=== PATIENT | female | born 1970 | race Caucasian/White ===

== ENCOUNTER 2017-09-13 15:46 | Emergency (ER) | payer OTHER, SELFPAY ==
[~2017-09-13] VITALS: Ht 167.6 cm; Wt 95.2 kg
[~2017-09-13 15:46] MED LIST: ACET500 PO; ALBIPROI INH; ALBU8HFA2 INH; ALBU90I INH; ALBU90OI; ALBU90OI INH; ALBU90OI61 INH; ALPR1; AMOX500 PO; BUPR150T2; BUSP5 PO; Bactrim Ds Tab1 EACH PO; CALCAVITD PO; CEPH500 PO; CIPRSO OU; CITA20 PO; CODGUAEL PO; CYCL10 PO; ERGO400 PO; FLUO20; FLUO20 PO; FLUT220OIA IH; FLUT44OIA IH; HYDACE5 PO; IBUP800 PO; Keflex500 MG PO; MEDR150I; METCAR500 PO; MONT10T PO; MULVITMIND PO; NAPR500 PO; Norco 5-325 Ta1 EACH PO; OXYACE5T PO; PENVK500 PO; PRED10 PO; PRED20 PO; PRIMATINE MIST; PROM25 PO; Permethrin60 GM TP; RXHYDACE PO; RXOXYACE PO; RXPENVK250 PO; SULTRIDS PO; TOBR.3OPSO OP; TRAZ50 PO; Ultram50 MG PO; VENL75ER; VITB100 PO; ZOLP5
[2017-09-13] MEDS ORDERED: DULO30 PO (16:31)
[2017-09-13] MEDS ORDERED: CEPH500 PO (17:31)
[2018-05-31] MEDS ORDERED: Amphetamine Sal20 MG PO (16:20)
== END 2017-09-13 17:40 | disposition home or self-care (01) ==
LOC: ER 15:46
DX: L03.012 Cellulitis of left finger (principal); J45.909 Unspecified asthma, uncomplicated; F17.210 Nicotine dependence, cigarettes, uncomplicated; Z86.73 Personal history of transient ischemic attack (TIA), and cerebral infarction without residual deficits; Z79.899 Other long term (current) drug therapy
CPT/HCPCS: 10160; 99283

== ENCOUNTER 2017-09-16 16:37 | Emergency (ER) | payer SELFPAY ==
[~2017-09-16] VITALS: Ht 167.6 cm; Wt 95.2 kg
[~2017-09-16 16:37] MED LIST changes: +DULO30 PO
[2017-09-16] MEDS ORDERED: Vistaril50 MG PO (20:31)
== END 2017-09-16 21:20 | disposition home or self-care (01) ==
LOC: ER 16:37
DX: F41.9 Anxiety disorder, unspecified (principal); F32.9 Major depressive disorder, single episode, unspecified; J45.909 Unspecified asthma, uncomplicated; Z79.899 Other long term (current) drug therapy; Z86.14 Personal history of Methicillin resistant Staphylococcus aureus infection
CPT/HCPCS: 99284; Q3014

== ENCOUNTER 2017-11-15 14:14 | Emergency (ER) | END 2017-11-15 17:09 | disposition home or self-care (01) ==

== ENCOUNTER 2018-01-26 23:50 | Emergency (ER) | payer OTHER ==
[~2018-01-26] VITALS: Ht 170.2 cm; Wt 102.1 kg
[~2018-01-26 23:50] MED LIST changes: +Vistaril50 MG PO
[2018-01-26] MEDS ORDERED: AMIT50 PO (23:57)
[2018-01-26] MEDS ORDERED: CLON1 PO (23:57)
[2018-01-26] MEDS ORDERED: CYCL10 PO (23:57)
[2018-01-26] MEDS ORDERED: AMPDEX10 PO (23:57)
[2018-01-26] MEDS ORDERED: ALBU90OI61 INH (23:58)
[2018-01-26] MEDS ORDERED: ACYC400 PO (23:58)
[2018-01-26] MEDS ORDERED: HYDPAM25 PO (23:58)
== END 2018-01-27 01:56 | disposition home or self-care (01) ==
LOC: ER 23:50
DX: S61.411A Laceration without foreign body of right hand, initial encounter (principal); W25.XXXA Contact with sharp glass, initial encounter; Z79.899 Other long term (current) drug therapy; J45.909 Unspecified asthma, uncomplicated; F32.9 Major depressive disorder, single episode, unspecified; F41.9 Anxiety disorder, unspecified; F17.210 Nicotine dependence, cigarettes, uncomplicated
CPT/HCPCS: 12002; 90471; 90714; 99283

== ENCOUNTER 2018-02-13 06:43 | Emergency (ER) | payer OTHER ==
[~2018-02-13] VITALS: Ht 167.6 cm; Wt 88.0 kg
[~2018-02-13 06:43] MED LIST changes: +ACYC400 PO; +AMIT50 PO; +AMPDEX10 PO; +CLON1 PO; +HYDPAM25 PO
== END 2018-02-13 07:24 | disposition home or self-care (01) ==
LOC: ER 06:43
DX: S96.912A Strain of unspecified muscle and tendon at ankle and foot level, left foot, initial encounter (principal); J45.909 Unspecified asthma, uncomplicated; F32.9 Major depressive disorder, single episode, unspecified; F41.9 Anxiety disorder, unspecified; F17.210 Nicotine dependence, cigarettes, uncomplicated; Z79.899 Other long term (current) drug therapy; Z79.51 Long term (current) use of inhaled steroids; W19.XXXA Unspecified fall, initial encounter
CPT/HCPCS: 73610; 99283-25

== ENCOUNTER → 2018-11-23 | Outpatient (CLI) | payer OTHER ==
[~2018-11-23] MED LIST changes: +Amphetamine Sal20 MG PO; +Sudogest60 MG PO
== END | disposition home or self-care (01) ==
LOC: LAB SHORT 16:50 → LAB 16:50
DX: L02.01 Cutaneous abscess of face (principal)
CPT/HCPCS: 87070; 87075; 87077; 87147; 87186; 87205

== ENCOUNTER → 2018-12-01 | Outpatient (CLI) | payer OTHER ==
[~2018-12-01] MED LIST changes: +AMIT25 PO; +Amitriptyline100 MG; +DOK100 MG PO; +GABA100 PO; +HYDCHL50 PO; +HYDHCL25 PO; +Permethrin60 GM TOP; +Prednisone20 MG PO; +RISP3 PO; +Risperidone1 MG PO; +TRIDERM28.4 GM TOP
== END ==
LOC: LAB SHORT 14:10 → LAB 14:10
DX: F15.11 Other stimulant abuse, in remission (principal)
CPT/HCPCS: G0480

== ENCOUNTER 2019-01-06 15:40 | Emergency (ER) | payer OTHER ==
[~2019-01-06] VITALS: Ht 167.6 cm; Wt 89.8 kg
[~2019-01-06 15:40] MED LIST changes: -AMIT25 PO; -Amitriptyline100 MG; -DOK100 MG PO; -GABA100 PO; -HYDCHL50 PO; -HYDHCL25 PO; -Permethrin60 GM TOP; -Prednisone20 MG PO; -RISP3 PO; -Risperidone1 MG PO; -TRIDERM28.4 GM TOP
[2019-01-06] MEDS ORDERED: Amitriptyline100 MG (16:23)
[2019-01-06] MEDS ORDERED: CLON1 PO (16:23)
[2019-01-06] MEDS ORDERED: GABA100 PO (16:23)
[2019-01-06] MEDS ORDERED: DOK100 MG PO (16:24)
[2019-01-06] MEDS ORDERED: HYDCHL50 PO (16:24)
[2019-01-06 16:57] LABS: U Amphetamine Screen Not Detected; U Barbituate Screen Not Detected; U Benzodiazapine Screen Not Detected; U Buprenorphine Screen Not Detected; U Cannabinoids Screen Not Detected; U Cocaine Screen Not Detected; U Methadone Screen Not Detected; U Methamphetamine Screen Not Detected; U Opiates Screen Not Detected; U Oxycodone Screen Not Detected; U Phencyclidine Screen Not Detected; U Propoxyphene Screen Not Detected
== END 2019-01-06 18:32 | disposition home or self-care (01) ==
LOC: ER 15:40
PROVIDERS: Physician Assistant
DX: R45.1 Restlessness and agitation (principal); F22 Delusional disorders; G47.00 Insomnia, unspecified; F43.9 Reaction to severe stress, unspecified; F41.9 Anxiety disorder, unspecified; Z79.899 Other long term (current) drug therapy; J45.909 Unspecified asthma, uncomplicated; F32.9 Major depressive disorder, single episode, unspecified; F43.10 Post-traumatic stress disorder, unspecified; Z87.891 Personal history of nicotine dependence
CPT/HCPCS: 82947; 99284

== ENCOUNTER → 2019-01-25 | Outpatient (CLI) | payer OTHER ==
[~2019-01-25] MED LIST changes: +AMIT25 PO; +Amitriptyline100 MG; +DOK100 MG PO; +GABA100 PO; +HYDCHL50 PO; +HYDHCL25 PO; +Permethrin60 GM TOP; +Prednisone20 MG PO; +RISP3 PO; +Risperidone1 MG PO; +TRIDERM28.4 GM TOP
[2019-01-25 11:29] LABS: U Amphetamine Screen Not Detected; U Barbituate Screen Not Detected; U Benzodiazapine Screen Not Detected; U Buprenorphine Screen Not Detected; U Cannabinoids Screen Not Detected; U Cocaine Screen Not Detected; U Methadone Screen Not Detected; U Methamphetamine Screen Not Detected; U Opiates Screen Not Detected; U Oxycodone Screen Not Detected; U Phencyclidine Screen Not Detected; U Propoxyphene Screen Not Detected
[2019-01-30 03:07] LABS: AMITRIPTYLINE Positive (.); AMITRIPTYLINE CONF 184 ng/mL ({null, Cutoff=100}); CLOMIPRAMINE Negative ({null, Cutoff=100}); CYCLOBENZAPRINE Negative ({null, Cutoff=100}); DESIPRAMINE Negative ({null, Cutoff=100}); DOXEPIN Negative ({null, Cutoff=100}); IMIPRAMINE Negative ({null, Cutoff=100}); NORDOXEPIN Negative ({null, Cutoff=100}); NORTRIPTYLINE Positive (.); NORTRIPTYLINE CONF 324 ng/mL ({null, Cutoff=100}); PROTRIPTYLINE Negative ({null, Cutoff=100}); TRICYCLIC ANTIDEP Positive ng/mL ({null, Cutoff=100}); TRIMIPRAMINE Negative ({null, Cutoff=100})
== END | disposition home or self-care (01) ==
LOC: LAB SHORT 09:10 → LAB 09:10
PROVIDERS: Registered Nurse Psychiatric/Mental Health
DX: Z51.81 Encounter for therapeutic drug level monitoring (principal); F25.0 Schizoaffective disorder, bipolar type; Z79.899 Other long term (current) drug therapy
CPT/HCPCS: 80369; G0481

== ENCOUNTER → 2019-02-15 | Outpatient (CLI) | payer OTHER ==
[2019-02-15 13:21] LABS: U Amphetamine Screen Not Detected; U Barbituate Screen Not Detected; U Benzodiazapine Screen Not Detected; U Buprenorphine Screen Not Detected; U Cannabinoids Screen Not Detected; U Cocaine Screen Not Detected; U Methadone Screen Not Detected; U Methamphetamine Screen Not Detected; U Opiates Screen Not Detected; U Oxycodone Screen Not Detected; U Phencyclidine Screen Not Detected; U Propoxyphene Screen Not Detected
[2019-02-20 23:06] LABS: AMITRIPTYLINE Positive (.); AMITRIPTYLINE CONF 190 ng/mL ({null, Cutoff=100}); CLOMIPRAMINE Negative ({null, Cutoff=100}); CYCLOBENZAPRINE Negative ({null, Cutoff=100}); DESIPRAMINE Negative ({null, Cutoff=100}); DOXEPIN Negative ({null, Cutoff=100}); IMIPRAMINE Negative ({null, Cutoff=100}); NORDOXEPIN Negative ({null, Cutoff=100}); NORTRIPTYLINE Positive (.); NORTRIPTYLINE CONF 402 ng/mL ({null, Cutoff=100}); PROTRIPTYLINE Negative ({null, Cutoff=100}); TRICYCLIC ANTIDEP Positive ng/mL ({null, Cutoff=100}); TRIMIPRAMINE Negative ({null, Cutoff=100})
== END | disposition home or self-care (01) ==
LOC: LAB 09:30 → LAB SHORT 09:30
PROVIDERS: Registered Nurse Psychiatric/Mental Health
DX: Z51.81 Encounter for therapeutic drug level monitoring (principal); Z79.899 Other long term (current) drug therapy
CPT/HCPCS: 80369; G0481

== ENCOUNTER 2019-02-28 12:18 | Emergency (ER) | payer OTHER ==
[~2019-02-28] VITALS: Ht 167.6 cm; Wt 93.4 kg
[~2019-02-28 12:18] MED LIST changes: -AMIT25 PO; -HYDHCL25 PO; -Permethrin60 GM TOP; -Prednisone20 MG PO; -RISP3 PO; -Risperidone1 MG PO; -TRIDERM28.4 GM TOP
[2019-02-28] MEDS ORDERED: TRIDERM28.4 GM TOP ×2 (12:43→12:56)
[2019-02-28] MEDS ORDERED: Prednisone20 MG PO (12:43)
[2019-02-28] MEDS ORDERED: Permethrin60 GM TOP ×2 (12:43→12:56)
[2019-02-28] MEDS ORDERED: PRED20 PO (12:56)
== END 2019-02-28 13:16 | disposition home or self-care (01) ==
LOC: ER 12:18
DX: B86 Scabies (principal); J45.909 Unspecified asthma, uncomplicated; F32.9 Major depressive disorder, single episode, unspecified; F41.9 Anxiety disorder, unspecified; F43.10 Post-traumatic stress disorder, unspecified; Z87.891 Personal history of nicotine dependence; Z79.899 Other long term (current) drug therapy; F98.8 Other specified behavioral and emotional disorders with onset usually occurring in childhood and adolescence
CPT/HCPCS: 99282

== ENCOUNTER 2019-04-06 10:20 | Observation (INO) | payer OTHER ==
[~2019-04-06] VITALS: Ht 167.6 cm; Wt 98.0 kg
[~2019-04-06 10:20] MED LIST changes: +Permethrin60 GM TOP; +Prednisone20 MG PO; +TRIDERM28.4 GM TOP
[2019-04-06] MEDS ORDERED: HYDHCL25 PO ×2 (10:57→13:34)
[2019-04-06] MEDS ORDERED: Risperidone1 MG PO (10:57)
[2019-04-06] MEDS ORDERED: RISP3 PO (10:57)
[2019-04-06 11:07] LABS: Source, Urine Clean Catch
[2019-04-06 11:10] LABS: BASOPHILS ABSOLUTE AUTO 0.05 K/mm3 (0.00-0.23); BASOPHILS PERCENT AUTO 1 % (0-2); EOSINOPHILS ABSOLUTE AUTO 0.12 K/mm3 (0.00-0.68); EOSINOPHILS PERCENT AUTO 2 % (0-6); Hematocrit 36.6 % (33.0-51.0); IMMATURE GRAN ABSOLUTE AUTO 0.03 K/mm3 (0.00-0.10); IMMATURE GRAN PERCENT AUTO 0 % (0-1); LYMPHOCYTES ABSOLUTE AUTO 1.58 K/mm3 (0.84-5.20); LYMPHOCYTES PERCENT AUTO 21 % (21-46); MONOCYTES ABSOLUTE AUTO 0.79 K/mm3 (0.16-1.47); MONOCYTES PERCENT AUTO 11 % (4-13); Mean Corpuscular HGB 28.5 pg (26.0-34.0); Mean Corpuscular HGB Conc 32.8 g/dL (31.5-36.5); Mean Corpuscular Volume 87 fL (80-100); Mean Platelet Volume 10.7 fL (9.1-12.4); NEUTROPHILS ABSOLUTE AUTO 4.89 K/mm3 (1.96-9.15); NEUTROPHILS PERCENT AUTO 66 % (41-73); Platelet Count 212 K/mm3 (150-400); RDW Standard Deviation 40.9 fL (35.1-46.3); Red Blood Cell Count 4.21 M/mm3 (3.80-5.20); White Blood Cell Count 7.46 K/mm3 (4.00-11.30)
[2019-04-06 11:11] LABS: Bilirubin, Urine Neg (Neg); Blood, Urine Neg (Neg); Glucose Qualitative, Urine Neg (Neg); Ketones, Urine Neg (Neg); Leukocyte Esterase, Urine Neg (Neg); Nitrite, Urine Neg (Neg); Protein, Urine Neg (Neg); Urobilinogen, Urine NORM (Normal)
[2019-04-06 11:14] LABS: Appearance, Urine Clear (Clear); Color, Urine Yellow (P-Yellow)
[2019-04-06 11:24] LABS: U Amphetamine Screen Not Detected; U Barbituate Screen Not Detected; U Benzodiazapine Screen Not Detected; U Buprenorphine Screen Not Detected; U Cannabinoids Screen Not Detected; U Cocaine Screen Not Detected; U Methadone Screen Not Detected; U Methamphetamine Screen Not Detected; U Opiates Screen Not Detected; U Oxycodone Screen Not Detected; U Phencyclidine Screen Not Detected; U Propoxyphene Screen Not Detected
[2019-04-06 11:33] LABS: Alanine Aminotransfer (ALT/SGP 19 U/L (12-78); Albumin, Blood 3.3 g/dL (3.4-5.0); Albumin/Globulin Ratio 0.9 (0.8-1.8); Alk Phos 79 U/L (50-136); Anion Gap 5 mmol/L (6-16); Aspartate Aminotrans (AST/SGOT 13 U/L (12-37); Bilirubin, Total 0.4 mg/dL (0.1-1.0); Blood Urea Nitrogen 6 mg/dL (8-24); Bun/Creatinine Ratio 8.1 (12.0-20.0); CO2, Blood 26 mmol/L (21-32); Calcium, Blood 8.8 mg/dL (8.5-10.1); Chloride, Blood 109 mmol/L (98-108); Creatinine, Blood 0.74 mg/dL (0.40-1.00); Ethanol (Alcohol), Blood, Med <3 mg/dL; Globulin, Blood 3.5 g/dL (2.2-4.0); Glomerular Filtration Rate >60 (60-); Glucose, Blood 109 mg/dL (70-99); Potassium, Blood 3.9 mmol/L (3.5-5.5); Salicylate 1.7 mg/dL (2.8-20.0); Sodium, Blood 140 mmol/L (136-145); Total Protein, Blood 6.8 g/dL (6.4-8.2)
[2019-04-06 11:36] LABS: Acetaminophen, Random <2.0 ug/mL (10.0-30.0); Thyroid Stimulating Hormone 0.991 uIU/mL (0.360-4.800)
[2019-04-06] MEDS ORDERED: AMIT25 PO (13:34)
== END 2019-04-07 11:40 | disposition home or self-care (01) ==
LOC: ER 10:20 → EOR 10:21
PROVIDERS: ADMIT Emergency Medicine
DX: F32.9 Major depressive disorder, single episode, unspecified (principal); F25.0 Schizoaffective disorder, bipolar type; J06.9 Acute upper respiratory infection, unspecified; F41.9 Anxiety disorder, unspecified; F43.10 Post-traumatic stress disorder, unspecified; F17.200 Nicotine dependence, unspecified, uncomplicated; F98.8 Other specified behavioral and emotional disorders with onset usually occurring in childhood and adolescence; J45.909 Unspecified asthma, uncomplicated; Z59.0 Homelessness; Z79.899 Other long term (current) drug therapy; Z79.52 Long term (current) use of systemic steroids
CPT/HCPCS: 36415; 80053; 81003; 81025; 84443; 85025; 94640; 99285-25; G0378; G0480; Q3014

== ENCOUNTER 2019-04-16 16:22 | Emergency (ER) | payer OTHER ==
[~2019-04-16] VITALS: Ht 167.6 cm; Wt 95.2 kg
[~2019-04-16 16:22] MED LIST changes: +AMIT25 PO; +HYDHCL25 PO; +RISP3 PO; +Risperidone1 MG PO
== END 2019-04-16 17:32 | disposition home or self-care (01) ==
LOC: ER 16:22
DX: S09.90XA Unspecified injury of head, initial encounter (principal); F32.9 Major depressive disorder, single episode, unspecified; F43.10 Post-traumatic stress disorder, unspecified; F41.9 Anxiety disorder, unspecified; Z87.891 Personal history of nicotine dependence; Z79.899 Other long term (current) drug therapy; Y04.2XXA Assault by strike against or bumped into by another person, initial encounter
CPT/HCPCS: 99283